=== PATIENT | male | born 1995 | race Caucasian/White ===

== ENCOUNTER 2024-09-28 10:21 | Day surgery (SDC) | payer OTHER, SELFPAY ==
[2024-09-28] VITALS (15 sets, daily range): BP systolic 83–146; BP diastolic 45–89; PULSE 70–91; RESP 16–21; TEMP 36.2–37.4; O2SAT 92–99; BMI 34.7
--- OUTSIDE RECORDS SUMMARY | 2024-09-28 10:23 | XMS_ITS | Clinical Summary ---
Author Organization [facility] Address [address] [place] [address] Care Team Providers Care Supervisor Beater Room Name Role Phone No Primary/Referring, Phy Primary Care Provider Unavailable Source Comments You are receiving this document as you are listed as the primary care provider,follow-up provider, or the patient has been referred to you for consultation.This is in compliance with the Medicare andMedicaid EHR Incentive Program,which states Providers who transition their patient to another setting of careor provider of care or refers their patient to another provider of care shouldprovide summary care record for each transition of care or referral. [facility] Allergies No known active allergies Medications ALBUterol sulfate HFA 108 (90 Base) MCG/ACT inhalerIndicati ons:Acute bronchitis, unspecified organism Inhale 1-2 Puffs every 4 hours as needed for Wheezing. 18 g 2 05/29/19 25 Active benzonatate (TESSALON) 100 MG capsuleIndicati ons:Acute cough Take 1-2 Capsules (100-200 mg) by mouth three times a day as needed for Cough for up to 30 doses. 30 Capsule 05/29/19 25 Active metFORMIN XR (GLUCOPHAGE XR) 500 MG 24 hour release tabletIndicatio ns:Prediabetes TAKE 1 TABLET DAILY WITH A MEAL IN THE EVENING BY MOUTH (500 MG) 90 Tablet 1 09/28/19 25 Active metFORMIN XR (GLUCOPHAGE XR) 500 MG 24 hour release tabletIndicatio ns:Prediabetes Take 1 Tablet (500 mg) by mouth every evening with a meal. 90 Tablet 1 03/28/20 24 025 Discontinued Active Problems No known active problems Encounters Date Type Department Care Team Description 09/25/[address] [facility] [address] [address] Tasha Membreno, BLACKSMITH APPRENTICE, HUMAN RESOURCES OPERATIONS COORDINATOR Refill (metFORMIN XR (GLUCOPHAGE XR) 500 MG 24 hour release tablet [Pharmacy Med Name: METFORMIN HCL ER 500 MG TABLET]) from Last 3 Months Immunizations Immunization Administration Dates Next Due HepB Adult (Heplisav-B, 19+ yrs, 2 dose series) 03/11/2024 Tdap 07/24/2023 Social History Tobacco Use Types Packs/Day Years Used Date Smoking Tobacco: Never Passive Smoke Exposure: Never Smokeless Tobacco: Never Tobacco Cessation:Counseling Given: Not Answered Alcohol Use Standard Drinks/Week Comments Yes 0 (1 standard drink = 0.6 oz pur e alcohol) 2-3 drinks a week PHQ-2 Answer Date Recorded PHQ-2 Score 0 03/11/2024 Hunger Vital Sign Answer Date Recorded Within the past 12 months, y ou worried that your food would run out before you got the money to buy more. Never true 03/11/20 24 Within the past 12 months, t he food you bought just didn't last and you didn't have money to get more. Never true 03/11/2024 PRAPARE - Transportation Answer Date Re corded In the past 12 months, has l ack of transportation kept you from medical appointments or from getting medications? No 12/2023 In the past 12 months, has l ack of transportation kept you from meetings, work, or from getting things needed for daily living? No 03/11/2024 Housing Stability Vital Sign Answer Ilan e Recorded In the last 12 months, was t here a time when you were not able to pay the mortgage or rent on time? Yes 03/11/2024 In the past 12 months, how m any times have you moved where you were living? 1 03/11/2024 At any time in the past 12 m [facility], were you homeless or living in a long-term (including now)? No 03/11/2024 Sex and Gender Information Value Date Recorded Sex Assigned at Not on file Legal Sex Male 5:31 AM CDT Gender Identity Not on file Sexual Orientation Not on file Last Filed Vital Signs Vital Sign Reading Time Taken Comments Blood Pressure 135/87 05/29/2024 2:33 PM YARD HAND Pulse 81 05/29/2024 2:33 PM YARD HAND Temperature 36.7 C (98.1 F) 05/29/2024 2:33 PM YARD HAND Respiratory Rate 18 03/28/2024 3:54 PM YARD HAND Oxygen Saturation 97% 05/29/2024 2:33 PM YARD HAND Inhaled Oxygen Concentration - - Weight 129.3 kg (285 lb) 05/29/2024 2:33 PM YARD HAND Height 186.7 cm (6' 1.5) 03/28/2024 3:54 PM YARD HAND Body Mass Index 37.09 03/28/2024 3:54 PM YARD HAND Plan of Treatment Health Maintenance Due Date Last Done Comments COVID-19 Vaccine ( season) 2023 02/11/2023, 04/30/2021, 06/30/2020 HepB Vaccine (2) 04/08/2024 03/11/2024 Influenza Vaccine (Season Ended) 2024 02/03/2023, 02/16/2009 Prediabetes: HGBA1C 03/11/2025 03/11/2024 Adult Preventive Visit 03/11/2026 03/11/2024 DTaP/Tdap/Td Vaccine (8 - Tdap) 07/23/2033 07/24/2023, 04/25/2007, 02/01/2001, Additional history exists Zoster/Shingles Vaccine (1 of 2) 01/08/2046 Hib Vaccine Completed 05/14/1997, 07/02, 1996, Additional history exists IPV (Polio) Vaccine Completed 02/01/2000, 1996, 1996, Additional history exists HepA Vaccine Completed 11/26/2009, 02/16/2009 MCV4 Vaccine Completed 11/01/2012, 04/25/2007 HIV Screening (Preventive Services) Completed 03/11/2024 Hep C Screening (Preventive Services) Completed 03/11/2024 HPV Vaccine Aged Out No longer eligi ble based on patient's age to complete this topic Meningococcal B Vaccine Aged Out No l onger eligible based on patient's age to complete this topic Pneumococcal Vaccine Aged Out No long er eligible based on patient's age to complete this topic Procedures Procedure Name Priority Date/Time Associated Diagnosis Comments HGB A1C Routine 03/11/2024 3:54 PM YARD HAND Screening for diabetes mellitus HIV 1/2 AG/AB 4TH GEN Routine 03/11/2024 3:54 PM YARD HAND Screening for HIV (human immunodeficiency virus) HEPATITIS C ANTIBODY, WITH REFLEX (ANTI-HCV) Routine 03/11/2024 3:54 PM YARD HAND Need for hepatitis C screening test from Last 3 Months or Most Recently Relevant to Health Maintenance Results * HIV 1/2 Ag/Ab 4th Generation (03/11/2024 3:54 PM YARD HAND) HIV 1/2 Antigen/Anti body (4th generation) Negative (Non Reactive) Negative (Non Reactive) 03/11/2024 9:10 PM YARD HAND [facility] Comment:HIV-1 p24 Antigen an d HIV-1/HIV-2 Antibody not detected Blood Venipuncture / Unknown 03/11/2024 3:54 PM YARD HAND 03/11/2024 4:01 PM YARD HAND Tasha Membreno BLACKSMITH APPRENTICE, HUMAN RESOURCES OPERATIONS COORDINATOR LAB_1 Fin al Result Performing Organization Address [facility] Co de Phone Number [facility] [address] [place] [address] * Hepatitis C Antibody, with Reflex (03/11/2024 3:54 PM YARD HAND) Hepatitis C Antibody Negative (Non Reactive) Negative (Non Reactive) 03/11/2024 9:13 PM YARD HAND [facility] Comment:Antibodies to HCV no t detected. Does not exclude the possiblity of exposure to HCV. Blood Venipuncture / Unknown 03/11/2024 3:54 PM YARD HAND 03/11/2024 4:01 PM YARD HAND Tasha Membreno BLACKSMITH APPRENTICE, HUMAN RESOURCES OPERATIONS COORDINATOR LAB_1 Fin al Result Performing Organization Address [facility] Co de Phone Number [facility] [address] * (ABNORMAL) Hgb A1C (03/11/2024 3:54 PM YARD HAND) Hemoglobin A1C 5.7(H) <=5.6 % 03/11/2024 9:51 PM YARD HAND [facility] Estimated Average Glucose (Calc) 117 < 117 mg/dL 03/11/2024 9:51 PM YARD HAND [facility] Comment:Estimated average gl ucose (eAG) converts A1c into glucose units (mg/dL) and estimates average glucose over the past approximately 3 months. The eAG reference interval (<117 mg/dL) corresponds to an A1c of <5.7%. Blood Venipuncture / Unknown 03/11/2024 3:54 PM YARD HAND 03/11/2024 4:01 PM YARD HAND Narrative [facility] - 03/11/2024 9:51 PM YARD HAND For patients not previously diagnosed with diabetes: 5.7-6.4%: Increased risk for diabetes 6.5% and greater: Diagnostic for diabetes For patients diagnosed with diabetes: <8.0%: Goal of therapy for ages 18-75 Clinicians may recommend a higher or lower goal for specific individuals. us Tasha Membreno BLACKSMITH APPRENTICE, HUMAN RESOURCES OPERATIONS COORDINATOR LAB_1 Fin al Result [facility] [address] [place] [address], [facility] from Last 3 Months or Most Recently Relevant to Health Maintenance Insurance [id number] [facility] [place] [id number] UMR [id number] [facility] [place] [id number] UMR [id number] [facility] SARBJIT [place]VAS [id number] UMR Care Teams Supervisor Beater Room Relationship Specialty Start Date End Date No Primary/Referring, Phy PCP - General 07/24/23
--- OUTSIDE RECORDS SUMMARY | 2024-09-28 10:23 | XMS_ITS | Encounter Summary ---
Author Organization [facility] Address [address] [place] [address] Care Team Providers Care Line Builder Name Role Phone No Primary/Referring, Phy Primary Care Provider Unavailable Reason for Visit * Reason Comments Refill metFORMIN XR (GLUCOP BREANNA XR) 500 MG 24 hour release tablet [Pharmacy Med Name: METFORMIN HCL ER 500 MG TABLET] Encounter Details Date Type Department Care Team (Late st Contact Info) Description 09/25/[address] [facility] [place] [address] [place] [address] Arian Membreno, SCRAP PREPARER, WAFER MACHINE OPERATOR [address] [place] [address] Refill (metFORMIN XR (GLUCOPHAGE XR) 500 MG 24 hour release tablet [Pharmacy Med Name: METFORMIN HCL ER 500 MG TABLET]) Social History Tobacco Use Types Packs/Day Years Used Date Smoking Tobacco: Never Passive Smoke Exposure: Never Smokeless Tobacco: Never Alcohol Use Standard Drinks/Week Comments Yes 0 [...] any time in the past 12 m [facility], were you homeless or living in a detention (including now)? No 03/11/2024 Sex and Gender Information Value Date Recorded Sex Assigned at Not on file Legal Sex Male 5:31 AM CDT Gender Identity Not on file Sexual Orientation Not on file documented as of this encounter Nursing Notes * Janene Wells RN - 09/26/2024 8:09 AM CDT Further Assistance Needed on Refill from Clinician RN reviewed. Patient due for Lab(s). If you do not believe that you are the correct provider to sign, please send to the correct provider. Review pended order for accuracy and sign if appropriate, Clinician to order lab(s) and document ifpatient is due for lab only visit or office visit and lab, and Route to Front Line to schedule appointment Requested Prescriptions Pending Prescriptions Disp Refills metFORMIN XR (GLUCOPHAGE XR) 500 MG 24 hour release tablet [Pharmacy Med Name: METFORMIN HCL ER 500MG TABLET] 90 Tablet 0 Sig: TAKE 1 TABLET DAILY WITH A MEAL IN THE EVENING BY MOUTH (500 MG) * Tonia Ledesmawcomm - 09/25/2024 12:26 AM CDT metFORMIN XR (GLUCOPHAGE XR) 500 MG 24 hour release tablet [Pharmacy Med Name: METFORMIN HCL ER 500MG TABLET] Medication started: 03/28/2024 Last ordered by ARIAN MEMBRENO L: 03/28/2024 (181 days ago) QTY: 90, Refills: 1, Sig: take 1 tablet (500 mg) by mouth every evening with a meal. (changed but equivalent) -> Cr was not found within the last 5 years. Last qualifying visit: 03/28/2024 (with ARIAN MEMBRENO) (A more recent visit (in Family Practice with DAYLIN TSWJFWAbi Galarza) was found) Next scheduled visit: None Cr: Not found HBA1C: 5.7 % on 03/11/2024 [facility] Embedded Refills, Reference: [id number], 09/25/2024 12:26:46 AM CDT, Pool: HP Refill Centralized Services - Primary Care ([id number]) * Tonia Ledesma Xrcathy - 09/25/2024 12:26 AM CDT The following lab order(s) may be associated with the Result Note below: HGB A1C Notes recorded by Arian Membreno on 03/13/2024 at 11:37 AM CHARITO Urena Your HIV and hepatitis C screen are normal/negative. Your LDL bad cholesterol is at goal. Your HDL good cholesterol is low. Exercise works well to help improve this number. The A1c lab result is in the pre-diabetes range putting you at risk of developing diabetes in the next couple of years. Healthy diet with limited simple carbohydrates (sugar, bread, pasta, rice) and lots of fruits, vegetables, and lean protein in combination with 150 minutes of exercise per week can help to lower the risk of developing diabetes. We should continue to check labs once yearly. Arian Treadwell APRN, CNP * Tonia Ledesma - 09/25/2024 12:26 AM CDT The following lab order(s) may be associated with the following Patient Result Comment (Entered by Arian Membreno APRN, CNP at 03/13/2024 12:37 PM): HGB A1C Jose Rfaael Urena Your HIV and hepatitis C screen are normal/negative. Your LDL bad cholesterol is at goal.Your HDL good cholesterol is low. Exercise works well to help improve this number.The A1c lab result is in the pre-diabetes range putting you at risk of developing diabetes in the next couple ofyears. Healthy diet with limited simple carbohydrates (sugar, bread, pasta, rice) and lots of fruits, vegetables, and lean prote in in combination with 150 minutes of exercise per week can help to lower the risk of developing diabetes. We should continue to check labs once yearly.Arian Treadwell APRN, CNP documented in this encounter Plan of Treatment Not on file documented as of this encounter Visit Diagnoses Diagnosis Prediabetes Other abnormal glucose documented in this encounter Care Teams Line Builder Relationship Specialty Start Date End Date No Primary/Referring, Rajani PCP - General 07/24/23 documented as of this encounter
--- OUTSIDE RECORDS SUMMARY | 2024-09-28 10:23 | XMS_ITS | Clinical Summary ---
Author Organization [facility] Address [address] [place] [id number] Care Team Providers Care Cleater Name Role Phone Clinic, No Pcp Or Primary Care Provider Unavaila ble Allergies No known active allergies Medications cyclobenzaprine (FLEXERIL) 10 mg tabletIndication s:Acute bilateral low back pain without sciatica Take 1 Tablet (10 mg) by mouth every 8 hours if needed for Muscle Spasm. 20 Tablet 07/19/2020 Active naproxen (NAPROSYN) 500 mg tabletIndication s:Acute bilateral low back pain without sciatica Take 1 Tablet (500 mg) by mouth 2 times daily with meals. 30 Tablet 07/19/2020 Active Active Problems No known active problems Family History Relation Name Status Comments Father Alive Mother Alive Social History Tobacco Use Types Packs/Day Years Used Date Smoking Tobacco: Never Smokeless Tobacco: Never Alcohol Use Standard Drinks/Week Comments Not Asked 0 (1 standard drink = 0.6 oz pur e alcohol) Sex and Gender Information Value Date Recorded Sex Assigned at Not on file Legal Sex Male 7:04 PM CDT Gender Identity Not on file Sexual Orientation Not on file Obstetrics History Last Filed Vital Signs Vital Sign Reading Time Taken Comments Blood Pressure 129/83 09/05/2020 5:23 PM CDT Pulse 98 09/05/2020 5:23 PM CDT Temperature 36.9 C (98.5 F) 09/05/2020 5:23 PM CDT Respiratory Rate 12 09/05/2020 5:23 PM CDT Oxygen Saturation 96% 09/05/2020 5:23 PM CDT Inhaled Oxygen Concentration - - Weight 124.7 kg (275 lb) 09/05/2020 5:23 PM CDT Height 188 cm (6' 2) 09/05/2020 5:23 PM CDT Body Mass Index 35.31 09/05/2020 5:23 PM CDT Plan of Treatment Not on file Insurance [facility] Care Teams Cleater Relationship Specialty Start Date End Date Clinic, No Pcp Or . PCP - General 09/05/20
--- NOTE | 2024-09-28 10:36 | CRLHL7_ITS ---
For Patients: As a result of the Century Cures Act, medical imaging exams and procedure reports are released immediately into your electronic medical record. You may view this report before your referring provider. If you have questions, please contact your health care provider. INDICATION: Abdominal pain. TECHNIQUE: Multiplanar CT examination of the abdomen and pelvis was performed after the administration of 132 mL Isovue 370 intravenous contrast. COMPARISON: None. FINDINGS: Lower chest: No focal consolidation. Normal heart size. No pleural effusions or pneumothorax. Tiny 3 mm right middle nodule. Liver: Diffuse hepatic steatosis. Gallbladder: Unremarkable. Biliary: Unremarkable. Pancreas: Within normal limits. Spleen: Unremarkable. Adrenal glands: Unremarkable. Renal/ureters/bladder: Normal in size and symmetrically enhancing. No obstructive uropathy. No hydronephrosis or obstructive urinary calculi. No suspicious renal masses. The ureters appear unremarkable. The bladder is within normal limits. Pelvis: Prostate Gastrointestinal: No bowel wall thickening or bowel obstruction. Dilated appendix with appendiceal wall and periappendiceal fat stranding. Tiny appendicolith within the mid appendix. No significant colonic diverticulosis. Mild colonic stool burden. Vasculature: No aortic aneurysm. The portal vein remains patent. No significant atherosclerotic calcifications. Lymph nodes: No pathologic lymphadenopathy by size criteria. Peritoneum: Trace free fluid layering along the right pericolic gutter. No pneumoperitoneum. No drainable fluid collections. Abdominal wall/soft tissues: Unremarkable. Bones: No acute osseous abnormalities. IMPRESSION: 1. Findings compatible with acute appendicitis. No periappendiceal abscess. 2. Diffuse hepatic steatosis. Please note that all CT scans at this facility use dose modulation, iterative reconstruction, and/or weight-based dosing when appropriate to reduce radiation dose to as low as reasonably achievable. Dictated by Terrance Mathias MD @ 09/28/2024 11:45:54 AM (Electronically Signed)
--- NOTE | 2024-09-28 10:36 | ED.ABDPAIN ---
HPI - Abdominal Pain General Chief Complaint: Abdominal Pain Stated Complaint: Sent over clinic, thinking appendix Time Seen by Provider: 09/28/24 10:31 History of Present Illness HPI narrative: Patient is a E 29-year-old gentleman with history of borderline blood sugars who presents with right lower quadrant pain of approximately 36 hours duration. Patient has had no fevers no chills no night sweats. He has had general nausea with no vomiting. He has had no blood in his stool no dysuria. Patient has had no previous abdominal surgeries. His last meal was approximately 12 hours ago. Related Data Home Medications ?Medication ?Instructions ?Recorded ?Confirmed metformin 500 mg tablet,extended 500 mg PO DAILY 09/28/24 09/28/24 release 24 hr Allergies Allergy/AdvReac Type Severity Reaction Status Date / Time No Known Drug Allergies Allergy Verified 09/28/24 10:29 Review of Systems Status of ROS Reports: 10 or more systems reviewed and unremarkable except as noted in History and below Exam Narrative: Exam Narrative: EXAM GENERAL: Patient appears comfortable and well. EYES: No scleral icterus. LYMPH: No supraclavicular or cervical lymphadenopathy. SKIN: Visible skin seen during exam normal or with benign process only. EXT: No dependent lower extremity pedal edema. HEART: Regular rate and rhythm with no murmurs, rubs, or gallops. LUNGS: Clear to auscultation bilaterally with no crackles or wheezes. ABD: Soft, non tender, non distended. PSYCH: Good eye contact, speech is not pressured. Const: Vital Signs, click to edit/add: Vital Signs - 24 hr 09/28/24 10:24 Temperature 99.3 F Pulse Rate [Right Pulse Oximeter] 91 Respiratory Rate 18 Blood Pressure [Ri ght Upper Arm] 146/88 H Pulse Oximetry 98 Oxygen Delivery Me thod Room Air Course Course ED Course: Patient seen and examined. CT abdomen pelvis CBC comprehensive metabolic panel lipase UA pending. Vital Signs Vital signs: Initial Vital Signs Temperature 99.3 F 09/28/24 10:24 Temperature Source Temporal Artery Scan 09/28/24 10:24 Pulse Rate 91 09/28/24 10:24 Pulse Rhythm Regular 09/28/24 10:24 Pulse Strength 3+ Normal 09/28/24 10:24 Respiratory Rate 18 09/28/24 10:24 Blood Pressure 146/88 H 09/28/24 10:24 Blood Pressure Mean 107 H 09/28/24 10:24 Blood Pressure Position Sitting 09/28/24 10:24 Pulse Oximetry 98 09/28/24 10:24 Oxygen Delivery Method Room Air 09/28/24 10:24 Vital Signs Temperature 99.3 F 09/28/24 10:24 Pulse Rate 91 09/28/24 10:24 Respiratory Rate 18 09/28/24 10:24 Blood Pressure 146/88 H 09/28/24 10:24 Pulse Oximetry 98 09/28/24 10:24 Oxygen Delivery Method Room Air 09/28/24 10:24 Temperature 99.3 F 09/28/24 10:24 Pulse Rate 91 09/28/24 10:24 Respiratory Rate 18 09/28/24 10:24 Blood Pressure 146/88 H 09/28/24 10:24 Pulse Oximetry 98 09/28/24 10:24 Oxygen Delivery Method Room Air 09/28/24 10:24 MDM - Abdominal Pain MDM Narrative Medical decision making narrative: Patient presents with right-sided abdominal pain. His CT scan shows acute uncomplicated appendicitis. He is NPO. Surgery will be taking him to the operating room shortly. Lab workup is otherwise unremarkable with exception leukocytosis. Lab Data Labs: Lab Results 09/28/24 09/28/24 Range/Units 10:45 10:55 WBC 12.99 H (4.50-11.00) K/uL RBC 5.58 (4.30-5.90) m/uL Hgb 15.6 (13.5-17.5) gm/dL Hct 46.0 (37.0-53.0) % MCV 82 (80-100) fL MCH 28 (26-34) pg MCHC 34 (32-36) gm/dL RDW Coeff of Pilo 13.0 (11.5-15.5) % Plt Count 238 (140-440) K/uL Neut % (Auto) 78.3 H (42.0-72.0) % Lymph % (Auto) 12.9 L (20-44) % [place] % (Auto) 7.9 (0.0-11.0) % Eos % (Auto) 0.5 (0.0-7.0) % Baso % (Auto) 0.2 (0.0-3.0) % Neut # (Auto) 10.20 H (1.7-7.0) K/uL Lymph # (Auto) 1.70 (0.90-2.90) K/uL [place] # (Auto) 1.00 H (0.00-0.90) K/UL Eos # (Auto) 0.10 (0.00-0.50) K/uL Baso # (Auto) 0.00 (0.00-0.30) K/uL Abs Immat Gran (auto) 0.00 (0.00-0.30) K/uL Imm/Tot Granulo (auto) 0.2 % Sodium 138 (135-149) mmol/L Potassium 3.8 (3.6-5.1) mmol/L Chloride 102 (96-114) mmol/L Carbon Dioxide 26 (20-32) mmol/L Anion Gap 10 (7-15) mEq/L BUN 12 (5-24) mg/dL Creatinine 0.9 (0.5-1.5) mg/dL Estimated Creat Clear 142.07 Estimated GFR 119 ml/min Glucose 104 (60-115) mg/dL Calcium 9.4 (8.4-10.6) mg/dL Total Bilirubin 1.6 H (0.1-1.5) mg/dL AST 34 (12-35) U/L ALT 71 H (4-50) U/L Alkaline Phosphatase 60 (40-150) U/L Total Protein 8.0 (6.0-8.3) g/dL Albumin 4.8 (3.3-5.0) g/dL Lipase 81 (23-300) U/L Urine Color Yellow (Yellow) Urine Appearance Clear (Clear) Urine pH 6.0 (5.0-8.5) Ur Specific [place] 1.025 (1.000-1.030) Urine Protein Trace A (Negative) Urine Glucose (UA) Negative (Negative) Urine Ketones Negative (Negative) Urine Blood Trace-intact A (Negative) Urine Nitrite Negative (Negative) Urine Bilirubin Negative (Negative) Urine Urobilinogen 0.2 (0.2-1.0) Ur Leukocyte Esterase Negative (Negative) Urine RBC 2-5 A (0-2) Urine WBC 0-2 (0-5) Ur Squamous Epith Cells Few (None-Few) Urine Bacteria None (None) Discharge Plan Discharge Clinical Impression: Acute appendicitis Patient Disposition: Admitted As Observation Activity Level: Other Discharge Diet: Other
[2024-09-28 11:04] LABS: Basophils Percent Auto 0.2 % (0.0-3.0); Eosinophils Percent Auto 0.5 % (0.0-7.0); Hemoglobin* 15.6 gm/dL (13.5-17.5); Immature Granulocytes Pct Auto 0.2 %; Lymphocytes Percent Auto 12.9 % (20-44); Mean Corpuscular HGB Conc 34 gm/dL (32-36); Mean Corpuscular Hemoglobin 28 pg (26-34); Mean Corpuscular Volume 82 fL (80-100); Monocytes Percent Auto 7.9 % (0.0-11.0); Neutrophils Percent Auto 78.3 % (42.0-72.0); Platelet Count* 238 K/uL (140-440); Red Blood Count 5.58 m/uL (4.30-5.90); White Blood Count* 12.99 K/uL (4.50-11.00)
[2024-09-28 11:05] LABS: Appearance Urine Clear (Clear); Bilirubin Urine Negative (Negative); Blood Urine Trace-intact (Negative); Color Urine Yellow (Yellow); Glucose Urine Negative (Negative); Ketones Urine Negative (Negative); Leukocyte Esterase Urine Negative (Negative); Nitrite Urine Negative (Negative); Protein Urine Trace (Negative); Specific Gravity Urine 1.025 (1.000-1.030); Urobilinogen Urine 0.2 (0.2-1.0)
[2024-09-28 11:20] LABS: Albumin* 4.8 g/dL (3.3-5.0); Chloride* 102 mmol/L (96-114); Potassium* 3.8 mmol/L (3.6-5.1); Sodium* 138 mmol/L (135-149)
[2024-09-28 11:22] LABS: Alanine Aminotransferase* 71 U/L (4-50); Anion Gap 10 mEq/L (7-15); Aspartate Amino Transferase* 34 U/L (12-35); Blood Urea Nitrogen* 12 mg/dL (5-24); Carbon Dioxide* 26 mmol/L (20-32); Creatinine* 0.9 mg/dL (0.5-1.5); Est. Creatinine Clearance* 142.07; Estimated Glomerular Filt Rate 119 ml/min
[2024-09-28 11:23] LABS: Alkaline Phosphatase* 60 U/L (40-150); Bilirubin Total* 1.6 mg/dL (0.1-1.5); Calcium* 9.4 mg/dL (8.4-10.6); Glucose* 104 mg/dL (60-115); Lipase* 81 U/L (23-300)
[2024-09-28 11:30] LABS: Slide Review Reflex No
[2024-09-28 11:30] LABS: Squamous Epithelial Cell Urine Few (None-Few); WBC Urine 0-2 (0-5)
[2024-09-28] MEDS: ONDANSETRON 2 MG/ML inj 4 MG IVP (13:21)
[2024-09-28] MEDS: KETOROLAC 15 MG/ML inj IVP (13:21)
[2024-09-28] MEDS: LACTATED RINGERS 1000 ML 1,000 ML 100 ML IV (14:05)
[2024-09-28] MEDS: PIPERACILLIN/TAZOBACTAM 3.375 GM in 0.9 % SODIUM CHLORIDE Mini-bag 100 ML IVPB (14:15)
[2024-09-28] MEDS: BUPIVACAINE 0.25% 30 ML INJECTION (14:54)
--- NOTE | 2024-09-28 15:02 | P.GSCN_ITS ---
History of Present Illness Consult details Date Seen: 09/28/24 Consult date: 09/28/24 Narrative: Patient presented to the emergency department with 24 hours worsening abdominal pain. The pain started yesterday morning as ?a bad stomach ache?. He did have some nausea, no vomiting. Diarrhea once. The pain continued to worsen throughout the day and gradually moved to the right lower side. He has never had pain like this before. No fevers. Decrease in appetite. He has never had abdominal surgery before. Patient lives in [place]. 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 He was here camping with his family. They are also planning on a trip to [place] next week. Review of Systems Status of ROS: Reports: 10 or more systems reviewed and unremarkable except as noted in History and below [facility] Social History Smoking Status: Never smoker Do you use any of these nicotine containing products: None How often do you have a drink containing alcohol: 2-4 times a month AUDIT-C Alcohol total score: 2 Non-prescribed substance use: denies use Meds Home Medications and Allergies Home Medications ?Medication ?Instructions ?Recorded ?Confirmed ?Type metformin 500 mg tablet,extended 500 mg PO DAILY 09/2809/28/24 History release 24 hr Allergies Allergy/AdvReac Type Severity Reaction Status Date / Time No Known Drug Allergies Allergy Verified 09/28/24 10:29 Exam Narrative: Exam Narrative: General: Alert and oriented, nontoxic Respiratory: Equal breath rise bilaterally, maintained on room air CV: Well perfused Abdomen: Soft, tender to palpation right lower quadrant with some guarding, no rebound. Const: Vital Signs, click to edit/add: Vital Signs - 24 hr 09/28/24 10:24 09/28/24 13:03 Temperature 99.3 F Pulse Rate [Right Pulse Oximeter] 91 91 Respiratory Rate 18 16 Blood Pressure [Ri ght Upper Arm] 146/88 H 134/89 Pulse Oximetry 98 97 Oxygen Delivery Me thod Room Air Room Air Results Labs Labs: Abnormal lab results 09/28/24 09/28/24 Range/Units 10:45 10:55 WBC 12.99 H (4.50-11.00) K/uL Neut % (Auto) 78.3 H (42.0-72.0) % Lymph % (Auto) 12.9 L (20-44) % Neut # (Auto) 10.20 H (1.7-7.0) K/uL [place] # (Auto) 1.00 H (0.00-0.90) K/UL Total Bilirubin 1.6 H (0.1-1.5) mg/dL ALT 71 H (4-50) U/L Urine Protein Trace A (Negative) Urine Blood Trace-intact A (Negative) Urine RBC 2-5 A (0-2) Diabetes panel 09/28/24 Range/Units 10:55 Sodium 138 (135-149) mmol/L Potassium 3.8 (3.6-5.1) mmol/L Chloride 102 (96-114) mmol/L Carbon Dioxide 26 (20-32) mmol/L BUN 12 (5-24) mg/dL Creatinine 0.9 (0.5-1.5) mg/dL Glucose 104 (60-115) mg/dL Calcium 9.4 (8.4-10.6) mg/dL AST 34 (12-35) U/L ALT 71 H (4-50) U/L Alkaline Phosphatase 60 (40-150) U/L Total Protein 8.0 (6.0-8.3) g/dL Albumin 4.8 (3.3-5.0) g/dL Calcium panel 09/28/24 Range/Units 10:55 Calcium 9.4 (8.4-10.6) mg/dL Albumin 4.8 (3.3-5.0) g/dL Pituitary panel 09/28/24 Range/Units 10:55 Sodium 138 (135-149) mmol/L Potassium 3.8 (3.6-5.1) mmol/L Chloride 102 (96-114) mmol/L Carbon Dioxide 26 (20-32) mmol/L BUN 12 (5-24) mg/dL Creatinine 0.9 (0.5-1.5) mg/dL Glucose 104 (60-115) mg/dL Calcium 9.4 (8.4-10.6) mg/dL Adrenal panel 09/28/24 Range/Units 10:55 Sodium 138 (135-149) mmol/L Potassium 3.8 (3.6-5.1) mmol/L Chloride 102 (96-114) mmol/L Carbon Dioxide 26 (20-32) mmol/L BUN 12 (5-24) mg/dL Creatinine 0.9 (0.5-1.5) mg/dL Glucose 104 (60-115) mg/dL Calcium 9.4 (8.4-10.6) mg/dL Total Bilirubin 1.6 H (0.1-1.5) mg/dL AST 34 (12-35) U/L ALT 71 H (4-50) U/L Alkaline Phosphatase 60 (40-150) U/L Total Protein 8.0 (6.0-8.3) g/dL Albumin 4.8 (3.3-5.0) g/dL All other labs normal. Imaging Abdomen CT scan report/results: report reviewed and image reviewed Progress Note:A&P Assessment and plan (1) Acute appendicitis: Status: Acute Plan The patient presented with a history, exam and imaging findings consistent with acute appendicitis. I discussed the treatment options with the patient including non-surgical and surgical options. I recommended laparoscopic appendectomy. The risks of surgery were reviewed with the patient including the risks of bleeding, post-operative wound or intra-abdominal infection, injury to abdominal structures and possible conversion to an open operation. We also discussed anesthetic complications including KS, stroke, respiratory failure and blood clots. The patient voiced an understanding of our conversation, had the opportunity to ask questions, agreed to accept the risks of surgery and asked that we proceed with surgery.
--- NOTE | 2024-09-28 15:05 | P.GSOP_ITS ---
Operative Note Date of procedure: 09/28/24 Pre-op diagnosis: Acute appendicitis Post-op diagnosis: Same, non perforated Type of Procedure: Laparoscopic appendectomy Indications: Patient is a 29-year-old male who presented to the emergency department with clinical workup and symptoms consistent with acute appendicitis. This was confirmed on CT imaging. Risks and benefits of operative intervention were discussed at length with the patient. Risks included but was not limited to: Bleeding, infection, risk of damage to surrounding structures, possible need for additional procedures, possible need to convert to an open operation and postoperative complications such as pneumonia, pulmonary emboli or NE. All questions and concerns were addressed with the patient agreeing to proceed. Procedure Description: After discussing the risks and benefits of the procedure, the patient signed i nformed consent.? The operative site was marked and the patient was brought to the operating room and placed on the operating table in supine position.? Care was taken to pad the patient's pressure points.?? The patient was then intubated by anesthesia.?? The operative site was then prepped and draped in the usual sterile fashion.? A time-out was then performed. Entrance to the abdomen was obtained via a 5 mm optical trocar in the left upper quadrant. The abdomen was insufflated and briefly surveyed for any signs of injury. There were none. A 12 mm port was placed lateral to the umbilicus as well as a 5 mm port in the left lower quadrant under direct vision. The patient was then placed in Trendelenburg position with the right side up. The small bowel was gently moved out of the way and the appendix was in view. Evidence of inflammation at the tip of the appendix with surrounding inflamed fat. The base of the appendix was normal in appearance. A small amount of dissection was necessary to free the appendix from the surrounding pelvic attachments. This was grasped and pulled into view. A mesenteric window was created between the base of the appendix and the mesoappendix. A 30 mm Endo-BRAULIO purple load stapler was then used to transect the appendix at its base. A 45 mm vascular load stapler was then used to take the mesoappendix. The staple lines were inspected for bleeding. There was none. The appendix was then removed from the abdomen using an Endo-Catch bag. The specimen was sent to pathology. Fluid in the pelvis was suctioned. The appendectomy site was locally irrigated with a small amount of saline. The 12 mm port site fascia was closed with 0 Vicryl via the [place]. All ports were removed under direct visualization. Additional local anesthetic was applied at each site. The skin was then closed with absorbable subcuticular suture. Sterile dressings were then applied. Instrument sponge and needle counts were correct at the end of the case. The patient was then woken and transported to the PACU in stable condition. Findings: Acute appendicitis, non perforated. Anesthesia: GETA Surgeon: Malika Singletary MD Estimated blood loss (mL): 5 Specimen: Appendix Condition: stable Disposition: PACU
--- NOTE | 2024-09-28 15:14 | P.ANES_ITS ---
Anesthesia Charges Start Date/Time Anesthesia Start Date: 09/28/24 Anesthesia Start Time: 14:04 Stop Date/Time Anesthesia Stop Date: 09/28/24 Anesthesia Stop Time: 15:09 Summary Emergency: SECURITY EXPERT Coding CPT Codes CPT Codes: ANESTH SURG LOWER ABDOMEN - 03844 ([id number]) P2 - PATIENT W/MILD SYST DISEASE, QZ - SECURITY EXPERT SVC W/O SENIOR ANALYST PROGRAMMER BY Additional Codes: Summary - Emergency: SECURITY EXPERT ([id number])
--- NOTE | 2024-09-28 15:14 | W.ANESCHARGE ---
Anesthesia Charges Start Date/Time Anesthesia Start Date: 09/28/24 Anesthesia Start Time: 14:04 Stop Date/Time Anesthesia Stop Date: 09/28/24 Anesthesia Stop Time: 15:09 Summary Emergency: SODA TESTER Coding CPT Codes CPT Codes: ANESTH SURG LOWER ABDOMEN - 46700 ([id number]) P2 - PATIENT W/MILD SYST DISEASE, QZ - SODA TESTER SVC W/O GROCERY CASHIER BY Additional Codes: Summary - Emergency: SODA TESTER ([id number])
[2024-09-28] MEDS: LACTATED RINGERS 1000 ML 1,000 ML 35 ML IV (15:33)
--- NOTE | 2024-09-28 15:48 | SUR.PHASEI ---
patient met discharge criteria per anesthesia
[2024-09-28] MEDS: HYDROCODONE-ACETAMIN 5-325 MG 1 TAB PO (16:18)
--- NOTE | 2024-09-28 19:01 | PC.NURSE ---
Nursing Care Hours: [id number] Pt arrive to unit from PACU awake and oriented, pain controlled. VSS. Pt ate, drank without issue. Ambulated to BR for void and in the maher x2. Pain controlled. BS active. Tolerated regular diet. IV removed. Steri strips reenforced due to peeling. Neon x1 given. Forms signed. Ciara picked up from ED [employer] machine. script sent to home pharmacy. Pt ambulated off the unit in stable condition.
== END 2024-09-28 18:20 | disposition home or self-care (01) ==
LOC: ED 12:16 → SS 12:55 → MEDSURG 16:15
PROVIDERS: Emergency Provider Internal Medicine; Visit Provider Surgery
PROC: 0DTJ4ZZ Resection of Appendix, Percutaneous Endoscopic Approach (ICD-10-PCS; CPT 44970; principal; 2024-09-28 14:00)
DX: K35.80 Unspecified acute appendicitis (principal); K76.0 Fatty (change of) liver, not elsewhere classified
CPT/HCPCS: 44970; 00840; 36415; 74177; 80053; 81001; 81003; 83690; 85025; 99140; 99283; 99285; A9270; J0330; J0665; J1100; J1885; J2250; J2371; J2405; J2543; J2704; J2710; J3010; J7120; Q9967